=== PATIENT | male | born 1960 | race Caucasian/White ===

== ENCOUNTER 2016-12-02 20:55 | Inpatient (IN) | payer OTHER ==
--- NOTE | ~2016-12-02 | CO ---
Unit #: [id number] #: [id number] Patient: YON NELSON [id number] [facility] [address] [place] [address] [id number] MR#: [id number] NAME: YON NELSON ROOM: P256 Age: 56 Sex: M Admission Date: 12/02/2016 : 1960 Attending Physician: Silvia Banuelos M.D. Primary Care Physician: Generic Doctor Not In System Consultation Date: 12/03/2016 CONSULTATION REPORT ORDERING PROVIDER Dr. Banuelos. REASON FOR CONSULTATION Left wrist fracture. SUBJECTIVE The patient reports that approximately 3 to 3-1/2 weeks ago he fractured his left wrist when a couch fell on it. He went to his primary care provider, who referred him to an dairy nutrition specialist. He was given a splint to wear. He was told that he should wear the splint for 21 hours a day and remove for 3 hours a day. He did not present with [facility]. He reports some pain, but it is better when wearing the splint. OBJECTIVE The patient does have deformity in his left wrist and tenderness to palpation. He can move all of his digits appropriately and has good pulses. ASSESSMENT Wrist fracture. PLAN Plan is to get the patient a cock-up splint to wear 20 hours a day or so and he may remove for showering and for range of motion activity. Dictated by... Maryuri Bella/benji TD: 12/03/2016 18:07 JOB #: [id number] Unit #: [id number] #: [id number] Patient: YON NELSON CONSULTATION REPORT Page 1 of 1 X SCOTT KAISER APRN CONSULTATION REPORT
--- NOTE | ~2016-12-02 | PN ---
Unit #: [id number] #: [id number] Patient: YON NELSON [id number] [facility] [address] [place] [address] [id number] I MR#: [id number] NAME: YON NELSON ROOM: P256 Age: 56 Sex: M Admission Date: 12/02/2016 : 1960 Attending Physician: Silvia Banuelos M.D. Admitting Physician: Silvia Banuelos M.D. Primary Care Physician: Generic Doctor Not In System [facility] PROGRESS NOTES DATE OF SERVICE 12/11/2016 DISCUSSION Mr. Nelson is a 56-year-old white male who was seen today. Chart was reviewed and case was discussed with staff. He has been anxious, withdrawn, and rather seclusive to himself. He has been cooperative with treatment recommendations and has been taking the medications and tolerating them fairly well with no reported side effects. MENTAL STATUS EXAMINATION Middle-aged white male who is casually dressed with fair personal hygiene, appears to be in no acute distress or discomfort. The patient was awake and alert on interaction with intact orientation. His mood is anxious with congruent affect. He denies any suicidal or homicidal ideations. His insight and judgment remain slightly impaired. TREATMENT PLAN 1. We will continue him on him current medications and treatment protocol. We will monitor his response to the medications and make further adjustments as needed. 2. We will continue to follow up. Dictated by... Sivlia Banuelos M.D. IAA/bzg TD: 12/12/2016 11:39 JOB #: [id number] [facility] PROGRESS NOTES Page 1 of 1 X Silvia Banuelos MD PROGRESS NOTE
--- NOTE | ~2016-12-02 | PN ---
Unit #: [id number] #: [id number] Patient: YON NELSON [id number] [facility] [address] [place] [address] [id number] I MR#: [id number] NAME: YON NELSON ROOM: P256 Age: 56 Sex: M Admission Date: 12/02/2016 : 1960 Attending Physician: Silvia Banuelos M.D. Admitting Physician: Silvia Banuelos M.D. Primary Care Physician: Generic Doctor Not In System [facility] PROGRESS NOTES DATE OF SERVICE: 12/10/2016 SUBJECTIVE Mr. Nelson is a 56-year-old white male who was seen today and chart was reviewed, and case was discussed with the staff. He has been anxious, withdrawn, and rather seclusive to himself. Meanwhile, he has been cooperative with treatment recommendation and has been taking the medications and tolerating them fairly well with no reported side effects. MENTAL STATUS EXAMINATION Middle-aged white male who was casually dressed with fair personal hygiene, appears to be in no acute distress or discomfort. He was awake and alert on interaction with intact orientation. His mood was anxious with a congruent affect. He denies any suicidal or homicidal ideations, and also denies any auditory or visual hallucinations. His insight and judgment remain slightly impaired. TREATMENT PLAN 1. We will continue him on his current medications and treatment protocol. We will monitor his response and make further adjustments as needed. 2. We will continue to follow up. Dictated by... Amanda Richardson/benji TD: 12/11/2016 12:24 JOB #: [id number] [facility] PROGRESS NOTES Page 1 of 1 X Silvia Banuelos MD PROGRESS NOTE
--- NOTE | ~2016-12-02 | PN ---
Unit #: [id number] #: [id number] Patient: YON NELSON [id number] [facility] [address] [place] [address] [id number] MR#: [id number] NAME: YON NELSON ROOM: P256 Age: 56 Sex: M Admission Date: 12/02/2016 : 1960 Attending Physician: Silvia Banuelos M.D. Admitting Physician: Silvia Banuelos M.D. Primary Care Physician: Generic Doctor Not In System [employer] PROGRESS NOTES DATE OF SERVICE 12/08/2016 DISCUSSION Mr. Nelson is a 56-year-old white male who was seen today. Chart was reviewed and case was discussed with the staff. He has been complaining of persistent anxiety, depression, and mood swings, and irritability and has been polite and pleasant, and cooperative with treatment recommendations and has been taking the medications and tolerating them fairly well with no reported side effects. MENTAL STATUS EXAMINATION Middle-aged white male who is casually dressed with fair personal hygiene, appears to be in no acute distress or discomfort. She was awake and alert on interaction with intact orientation. His mood is anxious with congruent affect. He denies any suicidal or homicidal ideations. His insight and judgment remain slightly impaired. TREATMENT PLAN 1. We will continue him on his current medications and treatment protocol. We will monitor his response to the medication and make further adjustments as needed. 2. We will continue to follow up. Dictated by... Silvia Banuelos M.D. IAA/bzg TD: 12/09/2016 10:47 JOB #: [id number] Unit #: [id number] #: [id number] Patient: YON NELSON PROGRESS NOTES Page 1 of 1 X Silvia Banuelos MD PROGRESS NOTE
--- NOTE | ~2016-12-02 | PN ---
Unit #: [id number] #: [id number] Patient: YON NELSON [id number] [facility] [address] [place] [address] [id number] I MR#: [id number] NAME: YON NELSON ROOM: P256 Age: 56 Sex: M Admission Date: 12/02/2016 : 1960 Attending Physician: Silvia Banuelos M.D. Admitting Physician: Silvia Banuelos M.D. Primary Care Physician: Generic Doctor Not In System [facility] PROGRESS NOTES DATE OF SERVICE: 12/06/2016 SUBJECTIVE Mr. Nelson is a 56-year-old white male, who was seen today and chart was reviewed, and case was discussed with the staff. He has been anxious, withdrawn, and rather seclusive to himself. Meanwhile, he has been cooperative with treatment recommendations and has been taking the medications and tolerating them fairly well with no reported side effects. MENTAL STATUS EXAMINATION Middle-aged white male, who was casually dressed with fair personal hygiene, appears to be in no acute distress or discomfort. He was awake and alert on interaction with intact orientation. His mood was anxious with a congruent affect. He denies any suicidal or homicidal ideations. His insight and judgment remain slightly impaired. TREATMENT PLAN 1. We will continue his current medications and treatment protocol. We will monitor his response to the medications and make further adjustments as needed. 2. We will continue to follow up. Dictated by... Amanda Richardson/benji TD: 12/06/2016 09:38 JOB #: [id number] [facility] PROGRESS NOTES Page 1 of 1 X Silvia Baunelos MD PROGRESS NOTE
--- NOTE | ~2016-12-02 | DS ---
Unit #: [id number] #: [id number] [facility]: [facility] [id number] [facility] [address] [place] [address] [id number] I MR#: [id number] NAME: YON NELSON ROOM: P256 Age: 56 Sex: M Admission Date: 12/02/2016 : 1960 Discharge Date: 12/13/2016 Attending Physician: Silvia Banuelos M.D. Primary Care Physician: Generic Doctor Not In System DISCHARGE SUMMARY IDENTIFYING DATA Mr. Nelson is a 56-year-old white male, who is a resident of [place], [place], and was self-referred to the hospital. DISCHARGE DIAGNOSES Psychiatric: Bipolar disorder, most recent episode depressed, recurrent, moderate, without psychotic features; cocaine abuse, moderate. Medical: Hypertension, history of the left broken wrist. Stressors: Moderate psychosocial stressors. HISTORY OF PRESENT ILLNESS Please see initial psychiatric evaluation for details. PAST PSYCHIATRIC HISTORY Please see initial psychiatric evaluation for details. PAST MEDICAL HISTORY Please see initial psychiatric evaluation for details. HOSPITAL COURSE The patient was admitted to the adult psychiatric unit at [facility] and was oriented to the hospital environment. Routine p.r.n. medications were initiated, and he was started back on his home medications. However, he was noticed to be quite unstable and disorganized with flight of ideas, pressured speech, and tangentiality and constantly needing redirection, and Geodon was started as a mood stabilizer and was then gradually titrated up to 120 mg a day along with Zoloft and was able to show a fairly decent and therapeutic response with improvement in depression, anxiety, irritability, and as such, it was decided that he will be discharged home and will continue treatment on an outpatient basis. DISCHARGE MEDICATIONS Protonix 40 mg a day for acid reflux, Zoloft 100 mg a day for depression, Geodon 120 mg a day for bipolar, Norvasc 5 mg a day for hypertension. DISCHARGE CONDITION Stable. PROGNOSIS Fair. Unit #: [id number] #: [id number] Patient: YON NELSON Dictated by... Silvia Banuelos M.D. IAA/modl TD: 12/13/2016 22:59 JOB #: [id number] DISCHARGE SUMMARY Page 1 of 1 X Silvia Banuelos MD DISCHARGE SUMMARY
--- NOTE | ~2016-12-02 | PN ---
Unit #: [id number] #: [id number] Patient: YON NELSON [id number] [facility] [address] [place] [address] [id number] I MR#: [id number] NAME: YON NELSON ROOM: P256 Age: 56 Sex: M Admission Date: 12/02/2016 : 1960 Attending Physician: Silvia Banuelos M.D. Admitting Physician: Silvia Banuelos M.D. Primary Care Physician: Generic Doctor Not In System [facility] PROGRESS NOTES DATE OF SERVICE: 12/08/2016 SUBJECTIVE Mr. Nelson is a 56-year-old white male, who was seen today and chart was reviewed and the case was discussed with the staff. He has been anxious and withdrawn, though has not shown any agitation or irritability and has been seclusive to himself and has been exhibiting persistent depression and anxiety and reports feelings of hopelessness and suicidal thoughts. MENTAL STATUS EXAMINATION Middle-aged white male, who was casually dressed with fair personal hygiene, appears to be in no acute distress or discomfort. He was awake and alert on interaction with intact orientation. His mood was anxious with a congruent affect. He denies any suicidal or homicidal ideations. His insight and judgment remain slightly impaired. TREATMENT PLAN 1. We will continue him on his current medications and treatment protocol. We will monitor his response to the medications and make further adjustments as needed. 2. We will continue to follow up. Dictated by... Amanda Richardson/norbertol TD: 12/08/2016 14:11 JOB #: [id number] [facility] PROGRESS NOTES Page 1 of 1 X Silvia Banuelos MD X PROGRESS NOTE
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
--- NOTE | ~2016-12-02 | PN ---
Unit #: [id number] #: [id number] Patient: YON NELSON [id number] [facility] [address] [place] [address] [id number] I MR#: [id number] NAME: YON NELSON ROOM: P256 Age: 56 Sex: M Admission Date: 12/02/2016 : 1960 Attending Physician: Silvia Banuelos M.D. Admitting Physician: Silvia Banuelos M.D. Primary Care Physician: Generic Doctor Not In System [facility] PROGRESS NOTES DATE OF SERVICE 12/07/2016 DISCUSSION Mr. Nelson is a 56-year-old white male who was seen today. Chart was reviewed and case was discussed with staff. He has been anxious, withdrawn though has not shown any agitation and has been cooperative with treatment recommendations though has been reporting persistent depression, anxiety, and irritability. MENTAL STATUS EXAMINATION Middle-aged white male who is casually dressed with fair personal hygiene, appears to be in no acute distress or discomfort. He was awake and alert on interaction with intact orientation. His mood is anxious with a congruent affect. His speech is slow and goal-directed. He denies any suicidal or homicidal ideations and also denies any auditory or visual hallucinations. His insight and judgment remain slightly impaired. TREATMENT PLAN 1. We will continue him on his current medications and treatment protocol. We will monitor his response to the medications and make further adjustments as needed. 2. We will continue to follow up. Dictated by... Silvia Banuelos M.D. IAA/bzg TD: 12/07/2016 11:09 JOB #: [id number] Unit #: [id number] #: [id number] Patient: YON NELSON PROGRESS NOTES Page 1 of 1 X Silvia Banuelos MD PROGRESS NOTE
--- NOTE | ~2016-12-02 | PN ---
Unit #: [id number] #: [id number] Patient: YON NELSON [id number] [facility] [address] [place] [address] [id number] I MR#: [id number] NAME: YON NELSON ROOM: P256 Age: 56 Sex: M Admission Date: 12/02/2016 : 1960 Attending Physician: Silvia Banuelos M.D. Admitting Physician: Silvia Banuelos M.D. Primary Care Physician: Generic Doctor Not In System [facility] PROGRESS NOTES DATE December 05, 2016 DISCUSSION Mr. Nelson is a 66-year-old white male, who was seen today and chart was reviewed and the case was discussed with the staff. He has been anxious, withdrawn, depressed, and rather seclusive to himself. Meanwhile, he has been cooperative with the treatment recommendations and he has been taking the medications and tolerating them fairly well. MENTAL STATUS EXAMINATION Middle-aged white male, who was casually dressed with fair personal hygiene and appears to be in no acute distress or discomfort. He was awake and alert on interaction with intact orientation. His mood is anxious with a congruent affect. He denies any suicidal or homicidal ideations. His thought processes are disorganized with some looseness of associations and flight of ideas and paranoid ideations. His insight and judgment remain significantly impaired. TREATMENT PLAN 1. We will continue him on his current medications and treatment protocol, and will monitor his response to the medications, and make further adjustments as needed. 2. We will continue to followup. Dictated by... Amanda Richardson/mark TD: 12/05/2016 12:56 JOB #: [id number] Unit #: [id number] #: [id number] Patient: YON NELSON PROGRESS NOTES Page 1 of 1 X Silvia Banuelos MD PROGRESS NOTE
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
--- NOTE | ~2016-12-02 | CO ---
Unit #: [id number] #: [id number] Patient: YON NELSON [id number] [facility] [address] [place] [address] [id number] I MR#: [id number] NAME: YON NELSON ROOM: P256 Age: 56 Sex: M Admission Date: 12/02/2016 : 1960 Attending Physician: Silvia Banuelos M.D. Primary Care Physician: Steve Doctor Not In System Consultation Date: 12/06/2016 CONSULTATION REPORT ANDRE Espino is a 56-year-old with history of high blood pressure. Home medications included Zestril 10 mg p.o. q.h.s. The patient tells us that he has been compliant with his medications and during this admission, pressures have been 162/118, 151/115, 165/120 with heart rate at 90, 90, 71. We have added Norvasc 5 mg one p.o. daily. We will continue to monitor his blood pressure. Dictated by... Mary Hu P.A.-C. for Amanda Vo/benji TD: 12/06/2016 16:59 JOB #: [id number] CONSULTATION REPORT Page 1 of 1 X Mary Hu CONSULTATION REPORT
--- NOTE | ~2016-12-02 | PN ---
Unit #: [id number] #: [id number] Patient: YON NELSON [id number] [facility] [address] [place] [address] [id number] MR#: [id number] NAME: YON NELSON ROOM: P256 Age: 56 Sex: M Admission Date: 12/02/2016 : 1960 Attending Physician: Silvia Banuelos M.D. Admitting Physician: Silvia Banuelos M.D. Primary Care Physician: Generic Doctor Not In System [facility] PROGRESS NOTES DATE December 04, 2016 DISCUSSION Mr. Nelson is a 56-year-old white male, who was seen today and chart was reviewed and the case was discussed with the staff. He has been anxious, withdrawn, but has not shown any agitation, irritability, and has been cooperative with the treatment recommendations and he has been taking the medications and tolerating them fairly well. MENTAL STATUS EXAMINATION Middle-aged white male, who was casually dressed with fair personal hygiene and appears to be in no acute distress or discomfort. He was awake and alert on interaction with intact orientation. His mood is anxious with a congruent affect. He denies any suicidal or homicidal ideations. His insight and judgment remain slightly impaired. TREATMENT PLAN 1. We will continue him on his current medications and treatment protocol, and will monitor his response to the medications, and make further adjustments as needed. 2. We will continue to followup. Dictated by... Amanda Richardson/mark TD: 12/05/2016 05:16 JOB #: [id number] Unit #: [id number] #: [id number] Patient: YON NELSON PROGRESS NOTES Page 1 of 1 X Silvia Banuelos MD X PROGRESS NOTE
--- NOTE | ~2016-12-02 | HP ---
Unit #: [id number] #: [id number] Patient: YON NELSON [id number] [place] [address] [id number] MR#: [id number] NAME: YON NELSON ROOM: P256 Age: 56 Sex: M Admission Date: 12/02/2016 : 1960 Attending Physician: Silvia Banuelos M.D. Admitting Physician: Silvia Banuelos M.D. Primary Care Physician: Generic Doctor Not In System HISTORY AND PHYSICAL HISTORY OF PRESENT ILLNESS The patient is a 56-year-old male admitted to [address] [place] [address] on 12/02/2016 for suicidal ideation. PAST MEDICAL HISTORY 1. Hypertension. 2. Recent left broken wrist. 3. Anemia. PAST SURGICAL HISTORY Gastric bypass. ALLERGIES No known drug allergies. SOCIAL HISTORY He is retired. He lives alone. He smokes 1 pack of cigarettes daily and uses alcohol and cocaine occasionally. FAMILY HISTORY Noncontributory. REVIEW OF SYSTEMS CONSTITUTIONAL: No fever or chills. HEENT: Denies any sore throat, ear pain or runny nose. CARDIOVASCULAR: Denies chest pain, irregular heart rhythm or palpitations. CHEST: Denies shortness of breath or cough. No hemoptysis. GASTROINTESTINAL: Denies nausea, vomiting, diarrhea or chronic constipation. ENDOCRINE: Denies history of increased thirst or urination. No recent significant weight loss or gain. GENITOURINARY: Denies dysuria, frequency, or hematuria. SKIN: Denies any rashes. HEMATOLOGIC: Denies history of increased bleeding or bruising. MUSCULOSKELETAL: Denies any hot, swollen joints. No generalized muscle pain. NEUROLOGIC: Denies problems with vision or speech. No frequent, severe headaches. No numbness, tingling or weakness in any extremities. Denies loss of bladder or bowel control. CURRENT MEDICATIONS 1. Prilosec. 2. Vistaril. Unit #: [id number] #: [id number] Patient: YON NELSON 3. Gabapentin. 4. Vitamin D. 5. Trazodone. 6. Propranolol. 7. Zoloft. 8. Lisinopril. PHYSICAL EXAMINATION GENERAL: He is awake, alert, oriented, in no acute distress. VITAL SIGNS: Temperature 97.9, heart rate 90, respirations 18, blood pressure 165/120. HEIGHT: 5 feet 9. WEIGHT: 192 pounds. SKIN: Warm and dry without rash or lesion. HEENT: Normocephalic. TMs not viewed. Oral and nasal passages clear. Conjunctivae clear. PERRLA. EOMs intact. NECK: Supple without lymphadenopathy or thyromegaly. HEART: Regular rate and rhythm without murmur. LUNGS: Clear. ABDOMEN: Soft, nontender. : Not done. EXTREMITIES: He has a deformity in his left wrist from a recent fracture. NEUROLOGICAL: Grossly within normal limits. Cranial Nerves: II: Visual nnuez are intact. III, IV AND : Extraocular movements are intact. Pupils are equal, round and reactive to light. V: Facial sensation is grossly normal. VII: Facial movements and expression are normal. VIII: Auditory acuity grossly intact. IX, X: Uvula is midline. Phonation is normal. XI: Patient shrugs shoulders and turns head normally. XII: Tongue protrudes in the midline. Sensory and Motor Function: Sensory and motor sensation is grossly normal. Motor: moves all extremities well. Coordination: Gait is normal. Deep Tendon Reflexes: Intact. IMPRESSION 1. Psychiatric admission. 2. Hypertension. 3. Left broken wrist. 4. Anemia. 5. Nicotine dependence. RECOMMENDATIONS PSYCHIATRIC: Per psychiatrist. MEDICAL: No contraindications to participate in facility's activities. MEDICAL PROGNOSIS Good. MEDICAL CONDITION Stable. Dictated by... Susu Cox A.P.R.N. Unit #: [id number] #: [id number] Patient: OMARYON NEGRON/oralia TD: 12/03/2016 21:28 JOB #: [id number] HISTORY AND PHYSICAL Page 1 of 1 X SUSU COX APRN HISTORY AND PHYSICAL
--- NOTE | ~2016-12-02 | PN ---
Unit #: [id number] #: [id number] Patient: YON NELSON [id number] [facility] [address] [place] [address] [id number] MR#: [id number] NAME: YON NELSON ROOM: P256 Age: 56 Sex: M Admission Date: 12/02/2016 : 1960 Attending Physician: Silvia Banuelos M.D. Admitting Physician: Silvia Banuelos M.D. Primary Care Physician: Generic Doctor Not In System [facility] PROGRESS NOTES DATE December 12, 2016 DISCUSSION Mr. Nelson is a 56-year-old white male, who was seen today and chart was reviewed and the case was discussed with the staff. He has been anxious, withdrawn, and rather seclusive to himself. Meanwhile, he has been cooperative with the treatment recommendations. He has been taking the medications and tolerating them fairly well with no reported side effects. MENTAL STATUS EXAMINATION Middle-aged white male, who was casually dressed with fair personal hygiene and appears to be in no acute distress or discomfort. He was awake and alert on interaction with intact orientation. His mood is anxious with a congruent affect. He denies any suicidal or homicidal ideations. His insight and judgment remain slightly impaired. TREATMENT PLAN 1. We will continue him on his current medications and treatment protocol, and will monitor his response to the medications, and make further adjustments as needed. 2. We will continue to followup. Dictated by... Amanda Richardson/mark TD: 12/13/2016 05:02 JOB #: [id number] Unit #: [id number] #: [id number] Patient: YON NELSON [facility] PROGRESS NOTES Page 1 of 1 X Silvia Banuelos MD X PROGRESS NOTE
[2016-12-03 12:57] LABS: BASOPHIL# 0.1 X10e3 (0-0.3); DIFF IND NO; EOSINOPHIL# 0.2 X10e3 (0-0.7); EOSINOPHIL% 4.6 % (0.0-7.0); HEMATOCRIT 38.9 % (38.0-50.0); HEMOGLOBIN 12.3 gm/dL (13.0-16.0); LYMPHOCYTE# 1.2 X10e3 (1.0-3.5); LYMPHOCYTE% 22.4 % (17.0-45.0); MEAN CELL VOLUME 81.7 FL (83-96); MEAN CORPUSCULAR HEMOGLOBIN 25.8 PG (28-34); MEAN CORPUSCULAR HGB CONC 31.6 g/dL (30-36); MEAN PLATELET VOLUME 9.4 FL (6.5-11.5); MONOCYTE# 0.4 X10e3 (0-1.0); MONOCYTE% 7.4 % (3.0-12.0); NEUTROPHIL# 3.4 X10e3 (1.5-7.1); NEUTROPHIL% 64.6 % (40-75); PLATELET COUNT 138 X10e3 (140-420); RED BLOOD COUNT 4.77 X10e (3.90-5.60); WHITE BLOOD COUNT 5.2 X10e3 (4.0-10.5)
[2016-12-03 13:28] LABS: THYROID STIMULATING HORMONE 0.8 uIU/ml (0.34-5.60)
[2016-12-03 13:32] LABS: ALBUMIN SERUM 3.7 g/dL (3.5-5.0); BILIRUBIN,TOTAL 0.4 mg/dL (0.2-2.0); BUN/CREATININE RATIO 14.28; CALCIUM SERUM 8.6 mg/dL (8.4-10.2); CREATININE SERUM 1.4 mg/dL (0.6-1.4); GLOM FILT RATE Estimated 56.6 mL/min (>60); POTASSIUM 4.2 mmol/L (3.5-5.1); PROTEIN TOTAL SERUM 6.3 g/dL (6.0-8.3)
[2016-12-03 13:34] LABS: FREE THYROXIN (T4) 1.01 ng/dL (0.58-1.64)
[2016-12-06 10:01] LABS: URINE APPEARANCE CLEAR; URINE BILIRUBIN NEG (NEG); URINE BLOOD NEG (NEG); URINE COLOR YELLOW; URINE GLUCOSE NEG (NEG); URINE KETONE NEG (NEG); URINE LEUKOCYTE ESTERASE NEG (NEG); URINE NITRATE NEG (NEG); URINE PH 5.5 (5-8); URINE PROTEIN NEG (NEG); URINE SPECIFIC GRAVITY 1.002 (1.003-1.035); URINE UROBILINOGEN 0.2 MG/DL (NEG)
[2016-12-06 10:26] LABS: AMPHETAMINE NEG (NEG); BARBITURATES NEG (NEG); BENZODIAZEPINES NEG (NEG); COCAINE POS (NEG); MARIJUANA NEG (NEG); OPIATES NEG (NEG); TRICYCLIC ANTIDEPRESSANTS NEG (NEG); U METHADONE NEG (NEG)
== END 2016-12-13 16:15 | disposition home or self-care (01) | DRG 885 ==
LOC: P2L 20:55
PROVIDERS: Psychiatry & Neurology Psychiatry
DX: F31.32 Bipolar disorder, current episode depressed, moderate (principal); I10 Essential (primary) hypertension; F14.10 Cocaine abuse, uncomplicated; S62.102D Fracture of unspecified carpal bone, left wrist, subsequent encounter for fracture with routine healing
CPT/HCPCS: 80053; 80307; 81003; 84439; 84443; 85025; J2550